=== PATIENT | male | born 2000 | race Two or more races ===

== ENCOUNTER 2025-02-15 07:09 | Emergency (ER) | payer OTHER ==
[~2025-02-15] VITALS: Ht 188 cm; Wt 81.3 kg
[2025-02-15 07:21] VITALS: BP 128/83; PULSE 122; RESP 18; O2SAT 95
[2025-02-15] MEDS ORDERED: BENZ-38 PO (07:49)
[2025-02-15] MEDS ORDERED: AMOX-101 PO (07:49)
[2025-02-15 07:54] VITALS: TEMP 99.8
== END 2025-02-15 07:56 | disposition home or self-care (01) ==
LOC: ER 07:10
DX: J20.9 Acute bronchitis, unspecified (principal); J02.9 Acute pharyngitis, unspecified; Z79.899 Other long term (current) drug therapy
CPT/HCPCS: 71045; 99283